=== PATIENT | male | born 1980 | race Caucasian/White ===

== ENCOUNTER 2019-06-27 08:39 | Emergency (ER) | payer MEDICAID ==
[~2019-06-27] VITALS: Wt 108.7 kg
[2019-06-27 08:51] VITALS: BP 129/82; PULSE 72; RESP 20
== END 2019-06-27 09:39 | disposition home or self-care (01) ==
LOC: FTE 08:39
DX: Z48.01 Encounter for change or removal of surgical wound dressing (principal); F17.210 Nicotine dependence, cigarettes, uncomplicated
CPT/HCPCS: 99281